=== PATIENT | female | born 1940 | race Asian ===

== ENCOUNTER 2017-02-01 12:30 | Inpatient (IN) | payer OTHER ==
[~2017-02-01] VITALS: Ht 162.6 cm; Wt 84.8 kg
[~2017-02-01 12:30] MED LIST: COZAAR100 MG PO; DONE5TAB PO; FOLI1TAB26 PO; K-TAB10 MEQ PO; OMEP20CA PO; ZOLOFT25 MG OR
[2017-02-01 12:44] VITALS: BP 125/68; TEMP 98.1
[2017-02-01 13:28] LABS: PLATELET COUNT 278 K/uL (152-353)
[2017-02-01 13:31] LABS: POTASSIUM 4.8 mmol/L (3.6-5.2)
[2017-02-01 15:04] VITALS: BP 121/70; TEMP 98
[2017-02-01 16:18] VITALS: BP 125/54; TEMP 97.6; Ht 162.6 cm; Wt 84.8 kg
[2017-02-01] MEDS ORDERED: METOPROLOL25 M1 PO (18:20)
[2017-02-01 20:00] VITALS: BP 132/53; TEMP 97.4
[2017-02-01 22:00] VITALS: BP 132/53; TEMP 97.4
[2017-02-02 04:00] VITALS: BP 130/88; TEMP 98.4
[2017-02-02 05:37] LABS: PLATELET COUNT 236 K/uL (152-353)
[2017-02-02 05:54] LABS: POTASSIUM 4.2 mmol/L (3.6-5.2)
[2017-02-02 08:00] VITALS: BP 138/57; TEMP 98.4
[2017-02-02 12:00] VITALS: BP 123/82; TEMP 97.8
[2017-02-02 16:00] VITALS: BP 135/57; TEMP 98
[2017-02-02 20:00] VITALS: BP 134/42; TEMP 98.6
[2017-02-03] VITALS (14 sets, daily range): BP systolic 111–151; BP diastolic 54–95; TEMP 97.4–98.8
[2017-02-03 06:55] LABS: PLATELET COUNT 258 K/uL (152-353)
[2017-02-03 07:19] LABS: POTASSIUM 4.2 mmol/L (3.6-5.2)
[2017-02-04] VITALS (15 sets, daily range): BP systolic 11–135; BP diastolic 59–97; TEMP 97.4–98.1
[2017-02-04 06:41] LABS: PLATELET COUNT 229 K/uL (152-353)
[2017-02-04 06:51] LABS: POTASSIUM 4.2 mmol/L (3.6-5.2)
[2017-02-05] VITALS (36 sets, daily range): BP systolic 76–149; BP diastolic 20–95; TEMP 96.5–98
[2017-02-05 05:27] LABS: PLATELET COUNT 225 K/uL (152-353)
[2017-02-05 05:48] LABS: POTASSIUM 4.2 mmol/L (3.6-5.2)
[2017-02-05 15:31] LABS: PARTIAL THROMBOPLASTIN TIME 27.8 SECONDS (24.5-33.6)
[2017-02-06] VITALS (34 sets, daily range): BP systolic 95–152; BP diastolic 57–112; TEMP 97.3–98.2
[2017-02-06 04:12] LABS: PLATELET COUNT 194 K/uL (152-353)
[2017-02-06 04:30] LABS: POTASSIUM 4.7 mmol/L (3.6-5.2)
== END 2017-02-06 13:55 | disposition expired | DRG 682 ==
LOC: ED 12:30 → MED/SURG 14:00 → ICU 02-03 08:30
PROVIDERS: Emergency Medicine; ADMIT Family Medicine
PROC: 5A1935Z Respiratory Ventilation, Less than 24 Consecutive Hours (ICD-10-PCS; principal; 2017-02-05)
PROC: 0BH17EZ Insertion of Endotracheal Airway into Trachea, Via Natural or Artificial Opening (ICD-10-PCS; 2017-02-05)
DX: N17.8 Other acute kidney failure (principal); I26.99 Other pulmonary embolism without acute cor pulmonale; J18.8 Other pneumonia, unspecified organism; E87.1 Hypo-osmolality and hyponatremia; E87.4 Mixed disorder of acid-base balance; J80 Acute respiratory distress syndrome; I10 Essential (primary) hypertension; F03.90 Unspecified dementia, unspecified severity, without behavioral disturbance, psychotic disturbance, mood disturbance, and anxiety; E88.09 Other disorders of plasma-protein metabolism, not elsewhere classified; D64.89 Other specified anemias
CPT/HCPCS: 31500; 36415; 36600; 80053; 80335; 81000; 82550; 82553; 82570; 82805; 83735; 83880; 83935; 84133; 84300; 84439; 84443; 84484; 84540; 85027; 85379; 85610; 85730; 87070; 87081; 87205; 87280; 87880; 87899; 93005; 94002; 94003; 94640; 94664; 94760; 96365; 96366; 96374; 99220; 99284; G0378; J0330; J0360; J1170; J1644; J1650; J1720; J1940; J1956; J2060; J2250; J2270; J2405; J2930; J3370; J3475; J3490